=== PATIENT | female | born 1990 | race Caucasian/White ===

== ENCOUNTER 2025-04-12 12:28 | Outpatient (CLI) | payer BC, SELFPAY ==
--- NOTE | 2025-04-12 13:25 | P.TNLD_ITS ---
Visit Information Visit Information Date of evaluation: 04/12/25 Primary OB Provider: Dayron Portillo Reason for Evaluation: Yes other Comments/Additional reasons for admission: 35-year-old G1 at GA 35+1 weeks. notable for umbilical cyst requiring weekly NST. [facility] Medical History (Updated 04/12/25 @ 13:57 by Dayron Portillo MD) Fibroids (~2020) Deep vein thrombosis (~2014) Family History (Updated 04/11/25 @ 13:11 by Kim Streeter RN) Father Inguinal hernia Mother Hyperlipidemia Hypertension Grandfather Alzheimer's disease Grandmother Diabetes mellitus Hypertension Stroke Grandfather Alzheimer's disease Grandmother COVID-19 Diabetes mellitus Social History marital status: number of children: 0 household members: spouse lives independently: Yes caregiver/support person: No housing: house pets and animals: Yes (cat & dog) education level: other (MD) occupational status: employed current occupational exposures/hazards: No special shari needs: No travel history: recent (domestic only) seatbelt use: always helmet use: Yes water heater temp set < 120 deg: Yes working smoke detector in home: Yes fire extinguisher in home: Yes carbon monox detector in home: Yes firearms in home: No do you feel safe at home: Yes second hand exposure: No alcohol intake: former (~3/week when not ) during the past year weight has: remained stable (prior to ) well-balanced diet: daily or most days daily servings fruits/ve-4 caffeine: Yes (single cup coffee in AM) Type(s) of exercise: walking Evaluation Evaluation Baseline heart rate: 135 Variability: Moderate (11-25) monitor accelerations: Present Monitor Decelerations: Absent Contraction Frequency (minutes): 6 Uterine Contraction Intensity: Mild Category of Tracing: Reactive Status: Category l Diagnosis, Plan/Disposition Final Diagnosis (1) Supervision of other high risk pregnancies, third trimester: Status: Acute (2) Umbilical cord cyst during , antepartum: Status: Acute (3) History of DVT of lower extremity: Status: Acute Plan/Disposition Plan: NST reactive w/cat 1 strip. Outside US on 04/07/25 demonstrated normal umbilical dopplers and AC 60th percentile indicating appropriate growth. Continue PNC with testing as indicated. OB Disposition: home
== END 2025-04-12 13:03 | disposition home or self-care (01) ==
LOC: OB 16:58
PROVIDERS: Referring Provider Family Medicine; Visit Provider Family Medicine
DX: O43.893 Other placental disorders, third trimester (principal); Z86.718 Personal history of other venous thrombosis and embolism; Z3A.35 35 weeks gestation of pregnancy
CPT/HCPCS: 59025; G0378; G0379

== ENCOUNTER 2025-05-16 19:11 | Inpatient (IN) | payer BC, SELFPAY ==
[2025-05-16 20:52] LABS: Add Manual Diff / Slide Review NO; Basophils Absolute Auto 100 /uL (0-100); Eosinophils Absolute Auto 200 /uL (0-450); Eosinophils Percent Auto 2.6 % (2-4); Hematocrit 36.8 % (36-46); Hemoglobin 12.7 g/dL (12.0-16.0); Lymphocytes Absolute Auto 1300 /uL (1100-4500); Lymphocytes Percent Auto 15.6 % (25-40); Mean Corpuscular HGB Conc 34.6 % (30-36); Mean Corpuscular Hemoglobin 33.9 PG (26-34); Mean Corpuscular Volume 98.1 fL (80-100); Monocytes Absolute Auto 900 /uL (0-900); Monocytes Percent Auto 10.6 % (3-14); Neutrophils Absolute Auto 5700 /uL (1500-7000); Neutrophils Percent Auto 70.2 % (50-75); Platelet Count 177 X10^3/uL (150-400); Red Blood Cell Count 3.75 X10^6/uL (4.0-5.2); White Blood Cell Count 8.2 X10^3/uL (4.5-11.0)
[2025-05-16] MEDS: miSOPROStoL 25 MCG TABLET 50 MCG PO (21:02)
[2025-05-16 21:48] VITALS: BP 133/83
[2025-05-17] MEDS: miSOPROStoL 25 MCG TABLET 50 MCG PO ×2 (01:17→06:00)
--- NOTE | 2025-05-17 08:11 | PM.OBHP.IH.1 ---
OB HPI Date/Time Date of admission: 05/16/25 Date Patient Seen: 05/17/25 Time Patient Seen: 07:50 History of Present Condition Chief complaint: induction BERNICE Calculator Estimated Delivery Date Method Current WG Current Estimate 05/16/25 Ultrasound #1 40w 1d Other Estimates 05/23/25 LMP (Uncertain) 39w 1d Estimated Gestational Age (weeks): 40+1 : 1 Para: 0 Narrative: 35-year-old at GA 40+1 weeks presenting for IOL. Endorses normal movement. Denies vaginal bleeding or denies leakage of fluid. course notable for AMA, remote hx DVT on Lovenox, umbilical cord cyst. care: good care Dating criteria OB: based on 1st trimester US only Ultrasounds: normal 1st trimester US, normal mid trimester US and abnormal US findings (umbilical cord cyst incidentally noted on 35wk growth US) Indications Indication for induction OB: medical complication (hx DVD on Lovenox) Preadmission Labs Last OB Lab Results: Blood Type O Positive 05/16/25, 20:00 Antibody Screen Negative 05/16/25, 20:00 Hct, (36-46) 36.8 % 05/16/25, 20:00 Hgb, (12.0-16.0) 12.7 g/dL 05/16/25, 20:00 Genetic Screens: Cell-free DNA: Normal and Alpha-fetoprotein: Normal External Labs -: HBsAG: negative, HIV: negative, RPR/VDLR: negative and GBS status: positive -: Rubella: immune and Varicella: unknown HCAB: reactive Glucose Tolerance Testin hr Evaluation Evaluation Baseline heart rate: 125 Variability: Moderate (6-25) monitor accelerations: Present Monitor Decelerations: Absent Contraction Frequency (minutes): 2 Dilation (cm): 1 Effacement (%): 30 station: -3 Position of cervix: mid Consistency: medium [facility] Medical History (Updated 05/04/25 @ 12:00 by Dayron Portillo MD) Fibroids (~2020) Deep vein thrombosis (~2014) Family History (Updated 04/11/25 @ 13:11 by Kim Streeter RN) Father Inguinal hernia Mother Hyperlipidemia Hypertension Grandfather Alzheimer's disease Grandmother Diabetes mellitus Hypertension Stroke Grandfather Alzheimer's disease Grandmother COVID-19 Diabetes mellitus Social History marital status: number of children: 0 household members: spouse lives independently: Yes caregiver/support person: No housing: house pets and animals: Yes (cat & dog) education level: other () occupational status: employed current occupational exposures/hazards: No special shari needs: No travel history: recent (domestic only) seatbelt use: always helmet use: Yes water heater temp set < 120 deg: Yes working smoke detector in home: Yes fire extinguisher in home: Yes carbon monox detector in home: Yes firearms in home: No do you feel safe at home: Yes Smoking Status: Never smoker second hand exposure: No alcohol intake: former (~3/week when not ) during the past year weight has: remained stable (prior to ) well-balanced diet: daily or most days daily servings fruits/ve-4 caffeine: Yes (single cup coffee in AM) Type(s) of exercise: walking Meds Home Medications and Allergies Home Medications ?Medication ?Instructions ?Recorded ?Confirmed ?Type vitamin-ferrous sulfate 1 tab PO 04/11/25 05/04/25 History 27 mg iron-folic acid 0.8 mg tablet enoxaparin 40 mg/0.4 mL 40 mg (0.4 mL) SUBCUT DAILY #4 mL 05/04/25 05/16/25 Rx subcutaneous syringe (Lovenox) Allergies Allergy/AdvReac Type Severity Reaction Status Date / Time No Known Drug Allergies Allergy Verified 05/16/25 21:53 OB Exam Narrative Exam Narrative: General: Well-nourished, no distress HEENT: NC/AT, EOMI, moist mucous membranes CV: RRR, normal S1 S2, no m/g/r Resp: CTAB Abd: Gravid, soft, NTND, +BS Ext: Full ROM, no edema Skin: No rash or lesions Neuro: A&O x3, normal tone, no focal deficits Objective Labs 05/16/25 20:00 Labs: Laboratory Results - last 24 hr 05/16/25 20:00 WBC 8.2 RBC 3.75 L Hgb 12.7 Hct 36.8 MCV 98.1 MCH 33.9 MCHC 34.6 RDW 14.0 Plt Count 177 Neut % (Auto) 70.2 Lymph % (Auto) 15.6 L George % (Auto) 10.6 Eos % (Auto) 2.6 Baso % (Auto) 1.0 Neut # (Auto) 5700 Lymph # (Auto) 1300 George # (Auto) 900 Eos # (Auto) 200 Baso # (Auto) 100 Blood Type O Positive Antibody Screen Negative Assessment and Plan Assessment and Plan Assessment and Plan narrative: 35-year-old at GA 40+1 weeks here for IOL. notable for AMA, hx DVT on Lovenox, incidental umbilical cyst. -admit to L&D -last dose LMWH Friday evening (>36h ago), restart 6-12h after delivery and continue 6wk PP per MFM recs -cervical ripening with misoprostol q4h -pizarro balloon placed without complication -GBS positive, ppx indicated during active labor -pain control prn if desired by patient -PPH risk low -VTE risk low, SCDs with epidural -anticipate vaginal delivery Time-Based Coding :: 25 minutes spent with patient and on the chart (including review of chart, obtaining history, exam, reviewing outside data, placing orders, documenting exam and treatment plan, and counseling patient) on 05/17/2025.
--- NOTE | 2025-05-17 10:38 | P.PN_ITS ---
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 History of DVT while on OCP 10yrs ago. Was on Xarelto for a short period then no further anticoagulation until as recommended by [facility]. Last dose of lovenox on 05/15/25. Ok to have an epidural placed now since greater than 24 hours after last dose of lovenox. If post plan includes anticoagulation ok to give 5000units after epidural catheter removed. If dose is to exceed 5000 units must wait 4 hours after pulling epidural catheter for first dose. If plans includes lovenox must wait 4 hours after pulling epidural cathete before giving first dose. Objective Labs 05/16/25 20:00 Labs: Laboratory Results - last 24 hr 05/16/25 20:00 WBC 8.2 RBC 3.75 L Hgb 12.7 Hct 36.8 MCV 98.1 MCH 33.9 MCHC 34.6 RDW 14.0 Plt Count 177 Neut % (Auto) 70.2 Lymph % (Auto) 15.6 L [place] % (Auto) 10.6 Eos % (Auto) 2.6 Baso % (Auto) 1.0 Neut # (Auto) 5700 Lymph # (Auto) 1300 [place] # (Auto) 900 Eos # (Auto) 200 Baso # (Auto) 100 Blood Type O Positive Antibody Screen Negative [facility] Medical History (Updated 05/04/25 @ 12:00 by Dayron Portillo MD) Fibroids (~2020) Deep vein thrombosis (~2014) Family History (Updated 04/11/25 @ 13:11 by Kim Streeter RN) Father Inguinal hernia Mother Hyperlipidemia Hypertension Grandfather Alzheimer's disease Grandmother Diabetes mellitus Hypertension Stroke Grandfather Alzheimer's disease Grandmother COVID-19 Diabetes mellitus Social History marital status: number of children: 0 household members: spouse lives independently: Yes caregiver/support person: No housing: house pets and animals: Yes (cat & dog) education level: other () occupational status: employed current occupational exposures/hazards: No special shari needs: No travel history: recent (domestic only) seatbelt use: always helmet use: Yes water heater temp set < 120 deg: Yes working smoke detector in home: Yes fire extinguisher in home: Yes carbon monox detector in home: Yes firearms in home: No do you feel safe at home: Yes Smoking Status: Never smoker second hand exposure: No alcohol intake: former (~3/week when not ) during the past year weight has: remained stable (prior to ) well-balanced diet: daily or most days daily servings fruits/ve-4 caffeine: Yes (single cup coffee in AM) Type(s) of exercise: walking Assessment & Plan Time-Based Coding :: [TOTAL MINUTES] spent with patient and on the chart (including review of chart, obtaining history, exam, reviewing outside data, placing orders, documenting exam and treatment plan, and counseling patient) on [DATE].
[2025-05-17] MEDS: LACTATED RINGERS 1,000 ML 100 ML IV (15:20)
[2025-05-17] MEDS: OXYTOCIN PREMIX 30 UNIT/500 ML PLAST..BAG IV (15:20)
--- NOTE | 2025-05-17 19:57 | P.PCN_ITS ---
Regional Block Pre-procedure Procedure: Continuous Lumbar Epidural for L&D (with dural puncture) Attending OB provider: Dayron Portillo PMH/ROS narrative: 35yo female at 40w1d in labor requesting epidural. Remote hx DVT. Pt has been on Lovenox during last dose the night of 05/15, 48 hours ago. Guidelines for heparin or Lovenox re hold times after catheter removal (4 hours in most cases) provided to Dr. Portillo should he decide to restart those. See pre- anesthesia evaluation for further details. ASA Class: II Labs: Hct 36.8 % (36-46) 05/16/25 20:00 Plt Count 177 X10^3/uL (150-400) 05/16/25 20:00 Medications: Current Medications Generic Name Dose Route Start Last Admin Trade Name Freq PRN Reason Stop Dose Admin Calcium Carbonate 1,000 mg 05/16/25 20:03 Calcium Carbonate 500 Mg Tab PO Q2HR PRN Dyspepsia Carboprost Tromethamine 250 mcg 05/16/25 20:03 Carboprost 250 Mcg/Ml Ampul IM Q90M PRN Bleeding Diphenhydramine HCl 25 mg 05/17/25 19:55 Diphenhydramine 50 Mg/Ml Vial IV Q10M PRN Pruritis Ephedrine Sulfate 10 mg 05/17/25 19:55 Ephedrine 50 Mg/Ml Vial IV Q5M PRN Blood pressure decrease more than 20% of baseline. Oxytocin/Lactated Ringer's 30 unit in 500 mls @ 200 mls/hr 05/16/25 20:03 Oxytocin Premix IV CONT PRN Bleeding Protocol Tranexamic Acid 1,000 mg/ 100 mls @ 600 mls/hr 05/16/25 20:03 Sodium Chloride IV NOW PRN Bleeding Ampicillin Sodium 1,000 mg/ 100 mls @ 200 mls/hr 05/16/25 20:15 Sodium Chloride IV Q4H RK Oxytocin/Lactated Ringer's 30 unit in 500 mls @ 2 mls/hr 05/16/25 20:15 05/17/25 15:20 Oxytocin Premix IV 2 milliunit/min TITRATE RK 2 mls/hr Protocol Administration 2 MILLIUNIT/MIN FENT 2MCG/ML BUPIV 0.125% EPI 200 mcg in 100 mls @ 6 mls/hr 05/17/25 20:00 Fentanyl/Bupiv/Ns 2mcg/Ml - 0.125% EPIDURAL CONT RK Lidocaine HCl 20 ml 05/16/25 20:03 Lidocaine 1% 20 Ml INJ INTRA-OP PRN Post Delivery Methylergonovine Maleate 0.2 mg 05/16/25 20:03 Methylergonovine 0.2 Mg Tablet PO Q6HR PRN Heavy Bleeding Methylergonovine Maleate 0.2 mg 05/16/25 20:03 Methylergonovine 0.2 Mg/Ml Vial IM NOW PRN Bleeding Metoclopramide HCl 10 mg 05/17/25 19:56 Metoclopramide 10 Mg/2 Ml Inj IV 05/18/25 19:56 Q4H PRN Nausea Mineral Oil 30 ml 05/16/25 20:03 Mineral Oil 30 Ml Udc TOP PRN PRN Version Misoprostol 800 mcg 05/16/25 20:03 Misoprostol 200 Mcg Tablet MI NOW PRN Bleeding Misoprostol 400 mcg 05/16/25 20:03 Misoprostol 200 Mcg Tablet SL NOW PRN Bleeding Misoprostol 50 mcg 05/16/25 20:03 05/17/25 06:00 Misoprostol 25 Mcg Tablet PO 50 mcg Q4H PRN Administration cervical ripening Nalbuphine HCl 2.5 mg 05/17/25 19:55 Nalbuphine 20 Mg/Ml Ampul IV Q10M PRN Pruritis Naloxone HCl 0.2 mg 05/16/25 20:03 Naloxone 0.4 Mg/Ml Vial IV Q2MIN PRN Opiate Reversal Ondansetron HCl 4 mg 05/16/25 20:03 Ondansetron 4 Mg/2 Ml Inj IV Q4HR PRN Nausea And Vomiting Ondansetron HCl 4 mg 05/17/25 21:00 Ondansetron 4 Mg/2 Ml Inj IV 05/18/25 01:01 Q4HR RK Oxytocin 10 unit 05/16/25 20:03 Oxytocin 10 Unit/Ml Vial IM NOW PRN Bleeding Allergies: Allergies Allergy/AdvReac Type Severity Reaction Status Date / Time No Known Drug Allergies Allergy Verified 05/16/25 21:53 Procedure Insertion date: 05/17/25 Insertion time: 19:27 Prep/Local: 1% lidocaine (Chloraprep) Interspace: L3-4 Patient position: sitting Needle: 18 gauge Hustead (with 27g Pencan for dural puncture) Loss of resistance with: saline TEE at (cm): 5 ((4.75 cm) Catheter placed at SKIN (cm): 12 Catheter in SPACE (cm): 7 Insertion: No CSF, No Blood, No Paresthesia with insertion, No Paresthesia with injection and No Test dose reaction Initial Medications TEST DOSE time: 19:29 TEST DOSE: 1.5% lidocaine with epinephrine 1:200k (mL): 3 BOLUS DOSE time: 19:30 BOLUS DOSE (mL): 2 BOLUS DOSE med: other (Same as test dose) Infusion INFUSION: 0.125% bupivacaine and with fentanyl 2 mcg/mL Initial rate (mL/hr): 8 Subsequent interventions: Epidural infusion started 19:45. Pt reports pain remains mostly in her back and rates it 4/10, down from 9/10. Able to move BLE easily. KR 22:35 Checked on pt. She is resting comfortably, denies any pain with contractions. Able to move B feet and lower legs, and reports upper legs are heavy. No changes made. KR 09:05 Checked on pt. She is resting comfortably, currently denies any pain with contractions, and was 8 cm on most recent check. She has pushed her PCEA button a few times overnight, most recently about 45 minutes ago, for L lower back pain. However, pt cannot move BLE currently. Discussed with pt that it will help with delivery if she can move her legs somewhat to aid in pushing, and I want to lower the epidural pump rate so that she can regain some mobility. Pt will still have PCEA button if needed, but our goal is some degree of BLE mobility. Pt voiced understanding and agreed to decreased pump rate. Infusion rate was decreased from 8 ml/hr to 7 ml/hr. KR Post-procedure Anesthesia date START: 05/17/25 Anesthesia time START: 19:16 Anesthesia date END: 05/18/25 Anesthesia time END: 19:13 Post-procedure Anesthesia Assessment: Yes CV function: HR/BP stable, Yes Resp function: RR/sat/airway adequate, Yes Post-op hydration adequate, Yes Pain control adequate, Yes Nausea & vomiting absent, Yes Temperature > 36 C, Yes Mental status appropriate and Yes Anesthesia complications (No anesthesia complication; pt had hemorrhage, anes available. )
[2025-05-17] MEDS: AMPICILLIN 2,000 MG in SODIUM CHLORIDE 0.9% 100 ML 200 MG IV (23:57)
[2025-05-18] MEDS: FENT 2MCG/ML BUPIV 0.125% EPI 200 MCG/100 ML PLAST..BAG 6 MCG EPIDURAL ×2 (03:22→12:15)
[2025-05-18] MEDS: AMPICILLIN 1,000 MG in SODIUM CHLORIDE 0.9% 100 ML 200 MG IV ×4 (04:02→17:00)
[2025-05-18] MEDS: ONDANSETRON 4 MG/2 ML INJ IV (07:33)
[2025-05-18] MEDS: OXYTOCIN PREMIX 30 UNIT/500 ML PLAST..BAG IV (08:30)
--- NOTE | 2025-05-18 08:56 | PM.OBPNLAB ---
Date/Time Date Patient Seen: 05/18/25 Time Patient Seen: 08:30 Pain Control Pain control: tolerating well and epidural Pelvic Exam Dilation (cm): 8 Effacement (%): 90 station: -2 Amniotic membrane status: Ruptured Comments: SROM w/light blood, no mec Contractions Monitor mode: External Pitocin rate (mU/min): 2 Contraction frequency (min): 5 Contraction duration (min): 1 Contraction pattern: Regular Status status: Category l Heart Rate Baseline: 140 Monitor Accelerations: Present Monitor Decelerations: Absent Monitor Variability: Moderate Assessment and Plan Assessment: active labor Plan: continuous present management Comments: MWB: Comfortable w/epidural. FWB: Cat 1 strip, no concerns. Labor: Good progress overnight, SROM sometime between last check at 0100. Continue active management w/repositioning to encourage descent. Anticipate vaginal delivery.
[2025-05-18] MEDS: LACTATED RINGERS 1,000 ML 100 ML IV ×2 (08:59→15:02)
[2025-05-18] MEDS: miSOPROStoL 200 MCG TABLET 800 MCG PR (19:50)
[2025-05-18] MEDS: miSOPROStoL 200 MCG TABLET PR (19:51)
[2025-05-18] MEDS: CEFAZOLIN 2 GM/100 ML PREMIX 100 ML IV (19:55)
--- NOTE | 2025-05-18 21:41 | PM.OBPRVD ---
Events: Labor Induction and Labor Augmentation Labor & Delivery Delivery date: 05/18/25 Delivery Time: 19:13 Intrapartal Events: Prolonged 2nd Stage > 2.5 hours Cervical ripening method: per misoprostal protocol Induction method: other (Stoddard bulb) Delivery augmentation: rupture of membranes and pitocin Delivery monitor: external FHT and external uterine Route of delivery: vacuum extraction Indication for instrumentation: nonreassuring FHR tracing L&D Laceration Description: None (posterior wall vaginal hematoma) Quantitative Blood Loss: 2,004 Anesthesia Type: Epidural Complications: -nonreassuring heart tracing with terminal bradycardia -cord avulsion requiring manual placenta removal - hemorrhage -vaginal hematoma Narrative: Patient fully dilated at 1431 and began pushing at 1432. She pushed for 4.5 hours with head at 3+ station when terminal bradycardia to 70 bpm was noted. Pt verbally consented for vacuum delivery due to nrFHT and a Kiwi device was applied in front of the posterior fontanelle, with appropriate placement confirmed digitally. With the patient's next contraction, the vacuum was inflated 500 mmHg and a gentle downward pressure was used to assist with bringing the baby's head to a +4 station. The vacuum was applied for a total of 2 minutes and the baby's head then delivered atraumatically with one continuous pull and no pop-off. Vacuum assisted vaginal delivery of a viable male in the OA position occurred at 1912. The vacuum was then released and the anterior shoulder was then delivered without difficulty. The was suctioned and stimulated at the perineum. He was noted to have poor tone with no respiratory effort so cord was clamped and cut, and the handed to the waiting care team. Cord blood and segment were obtained. The umbilical cord avulsed during active management of the 3rd stage, requiring manual removal. Multiple fundal sweeps were performed, the the majority of placenta was delivered delivered along with an intrauterine fibroid. A portion remained in the uterus and was difficult to remove manually. Dr. Sevilla (OB vehicle sales professional) was consulted and assisted with manual removal of remaining placental membranes with clots, and an empty uterus was confirmed with bedside ultrasound. The placental pieces were examined and found to be entirely present with a 3-vessel cord, as well as an intrauterine fibroid. After fundal massage the uterus was firm and bleeding stopped. The vagina and cervix were examined for lacerations. No lacerations were noted, however a hematoma was present on the posterior vaginal wall. The hematoma was monitored for 20 minutes and noted to be stable in size. TXA, IV pitocin, and 1000 mcg misoprostol DE were administered for PPH. 2 g cefazolin administered as prophylaxis against endometritis due to multiple uterine sweeps. Patient stable with rooming in, bonding skin to skin and attempting to breast feed. Placenta and fibroid sent for pathology. Geraldine Baby 1: gender: Male Presentation: vertex Placenta delivery description: Manual Removal Cord Vessel Description: 3 Vessels score (1 min): 1 score (5 min): 5 score (10 min): 9 weight: 7 lb 8.319 oz Plan for aftercare: Routine care and Other (Stoddard catheter was placed due to stress of labor/delivery with plan to keep in place for 12 hours, restart Lovenox 12 hours after delivery)
--- NOTE | 2025-05-18 21:52 | PATH_ITS ---
[facility] Accession Number: [id number] No. of containers..01 Tissue . 01 Material submitted: . placenta - PLACENTA . 01 Diagnosis: PLACENTA: Disrupted, grossly complete, dove placenta with features of maturation consistent with third trimester gestational age. Placental weight: 415 grams. Gestational age: Not known. Centrally inserted unremarkable three vessel umbilical cord; no evidence of funisitis, arteritis, true knots, or thrombi. Unremarkable membranes; no evidence of acute chorioamnionitis or features of meconium staining. Placantal disc with amniotic web. No evidence of villitis, infarcts, or features of abruption. Fragment of benign leiomyoma. MRV 05/26/2025 1537 Local . 01 Electronically signed: . Meryl Orozco MD, Pathologist NPI- [id number] . 01 Gross description: . The specimen is received in formalin with two patient identifiers and placenta, and consists of an 18 x 15 x 2.2 cm ovoid-shaped dove placenta. The membranes are landers-brown and insert marginally. There is a 17 cm in length by 0.8 cm in diameter avulsed umbilical cord which has a 2.5 cm attached amniotic web at the base. The umbilical cord is landers-white with 2.5 twists per 5 cm. The umbilical cord is centrally inserted. The surface is landers-purple with vessels arborizing the entire placental disc from the base of the umbilical cord. The amnion is partially torn from different portions of the surface. The maternal surface is made up of diffusely calcified and disrupted cotyledons; however, grossly appears entirely present. There is an additional 17 cm in length by 1.1 cm in diameter portion of umbilical cord identified in the container. Both sections of umbilical cord are sectioned to show a trivascular architecture. Sectioning through the placental disc shows red-landers beefy cut surface. No areas of infarction are appreciated. The trimmed weight of the placenta is 415 grams. Also received in the same container is a 5.5 x 4.5 x 4.0 cm (55 gram) enucleated white whorled well-circumscribed nodule with minimal attached adherent placental tissue. Sectioning through the nodule shows a white lobulated cut surface with a 1.8 cm in greatest dimension central area of hemorrhage. No cystic changes or necrosis is appreciated. Additionally received in the container is a 6.5 x 4.5 x 2.0 cm aggregate of clotted blood. Grad Intern sections are submitted as labeled: . A1: Proximal and distal cord. A2: Membrane rolls. A3-A5: Full thickness placental disc. A6: Central portion of hemorrhage of enucleated nodule. A7-A8: Additional sections of nodule to include adherent placental tissue. ([id number]) /MRV 05/20/[address] [place] [address] . 01 Pathologist provided ICD-10: D25.9, O43.90 . 01 CPT . 448041 Specimen Comment: A courtesy copy of this report has been sent to [facility] Performed at: [address] [address], [place], [place] [id number] MD Mateo Espinal MD Phone: [phone]
[2025-05-18] MEDS: ACETAMINOPHEN 325 MG TABLET 650 MG PO (23:01)
[2025-05-18] MEDS: IBUPROFEN 600 MG TABLET PO (23:02)
[2025-05-18] MEDS: WITCH HAZEL/GLYCERIN PADS 1 EACH TOP (23:02)
[2025-05-18] MEDS: DERMOPLAST SPRAY 20% 60 ML 1 SPRAY TOP (23:03)
[2025-05-19 01:40] LABS: Hematocrit 31.6 % (36-46); Hemoglobin 11.2 g/dL (12.0-16.0)
[2025-05-19] MEDS: IBUPROFEN 600 MG TABLET PO ×2 (05:11→13:45)
[2025-05-19] MEDS: ACETAMINOPHEN 325 MG TABLET 650 MG PO ×2 (05:11→13:44)
[2025-05-19 08:48] LABS: Hematocrit 31.3 % (36-46); Hemoglobin 10.9 g/dL (12.0-16.0)
[2025-05-19] MEDS: ENOXAPARIN 40 MG/0.4 ML SYRINGE SUBCUT (14:06)
[2025-05-19] MEDS: DOCUSATE 100 MG CAPSULE PO (16:50)
--- NOTE | 2025-05-19 17:17 | P.DS_ITS ---
Discharge Providers Provider Date of admission: 05/16/25 19:11 Discharge Date: 05/19/25 Primary care physician: Doctor Patricia MD Consults: 05/18/25 21:35 Consult to [employer] Player Routine Comment: Discharge provider: Dayron Portillo MD Summary Hospital Course Date Patient Seen: 05/19/25 Time Patient Seen: 13:15 Diagnoses: #vacuum assisted vaginal delivery # hemorrhage #vaginal hematoma #acute blood loss anemia #breast feeding mother #history of DVT Hospital Course: Admitted for mIOL on 05/17/2025. Progressed adequately with augmentation to complete dilation over the course of 20 hours. She had a vacuum assisted vaginal delivery of a live male infant with no lacerations. There was a cord avulsion during active management of the 3rd stage of labor requiring manual extraction of the placenta along with an intrauterine fibroid. She experiencing hemorrhage with the QBL of 2004 mL, but remained asymptomatic and did not require transfusion. A vaginal hematoma was noted but did not expand or lead to any additional bleeding. Her course was uncomplicated. Lovenox started 12 hours after delivery, to be continued 6 weeks PP per [facility] recs. At discharge patient is ambulating well, tolerating normal diet, breast-feeding without difficulty, and pain is adequately controlled. She reports bleeding is similar to normal menses. Peripartum Data Delivery Method: Assisted Delivery (Vacuum) Procedures: Manual extraction of placenta with multiple fundal sweeps complications: hematoma (posterior vaginal wall) 1: Gender: Male Disposition of : home Discharge Diagnosis (1) Vacuum extractor delivery, delivered: Status: Acute (2) hemorrhage: Status: Acute (3) Vaginal hematoma: Status: Acute (4) Anemia due to acute blood loss: Status: Acute (5) Mother currently breast-feeding: Status: Acute (6) History of DVT of lower extremity: Status: Acute Status at Discharge Cognitive/behavioral status at discharge: oriented Functional status at discharge: independent ambulation Overall status at discharge: patient is progressing back to baseline Time Spent with Patient Time attestation: Total time spent providing and/or coordinating discharge services: 25 minutes Objective Labs 05/19/25 08:40 Labs: Laboratory Results - last 24 hr 05/19/25 05/19/25 01:32 08:40 Hgb 11.2 L 10.9 L Hct 31.6 L 31.3 L Exam Narrative Exam Narrative: General: Well-appearing, well-nourished, no distress HEENT: Moist mucous membranes, no pallor CV: Regular rate and rhythm, no murmur auscultated Resp: CTAB, comfortable work of breathing Abdomen: Soft, bowel sounds present, fundus firm below umbilicus with appropriate tenderness Extremities: No edema, no calf tenderness or evidence of DVT Discharge Plan Discharge Plan Patient Disposition: Home Discharge orders & Medications Prescriptions: New acetaminophen 325 mg Tablet 650 mg PO Q6H PRN (Reason: Pain, Mild (1-3)) Qty: 60 1RF Dermoplast (with menthol) 20-0.5 % Aerosol 1 spray topical Q1HR PRN (Reason: Pain, Moderate (4-6)) Qty: 78 1RF ibuprofen 600 mg Tablet 600 mg PO Q6H Qty: 60 1RF Purelan Cream 1 applic topical PRN PRN (Reason: Sore Nipples) Qty: 7 6RF [employer] Sanna 12.5-50 % Pads, Medicated 1 pad topical Q30M PRN (Reason: Itching) Qty: 40 1RF polyethylene glycol 3350 17 gram/dose powder 17 g PO DAILY Qty: 510 1RF ferric citrate [Auryxia] 210 mg iron tablet 210 mg PO Q OTHER DAY Qty: 60 0RF Rx Instructions: administer with a meal Continued enoxaparin [Lovenox] 40 mg/0.4 mL syringe 40 mg SUBCUT DAILY Qty: 4 5RF vit-ferrous sulfat-FA 27 mg iron- 0.8 mg tablet 1 tab PO Follow up/Referrals: Dayron Portillo MD [Physician, Family Practice] - 06/29/25 3:00 pm Referral Note: Your six week follow up appointment with Dr. Portillo is scheduled for June 29 @ 3:00pm. Please arrive 15min early. Doctor Gomez MD [Primary Care Provider, Medical] Visit Report/Discharge Packet Stand Alone Forms: Discharge: Care, Patient Portal/API, Stroke Signs & Symptoms Discharge Data Primary Care Provider: Doctor Patricia
[2025-05-19 17:41] VITALS: BP 108/70; PULSE 74; RESP 14; TEMP 36.7
== END 2025-05-19 19:40 | disposition home or self-care (01) | DRG 806 ==
PROVIDERS: Admitting Provider Family Medicine; Referring Provider Family Medicine; Visit Provider Family Medicine
DX: O99.824 Streptococcus B carrier state complicating childbirth (principal); D62 Acute posthemorrhagic anemia; Z37.0 Single live birth; O63.1 Prolonged second stage (of labor); O34.13 Maternal care for benign tumor of corpus uteri, third trimester; D25.9 Leiomyoma of uterus, unspecified; O76 Abnormality in fetal heart rate and rhythm complicating labor and delivery; O90.81 Anemia of the puerperium; O69.89X0 Labor and delivery complicated by other cord complications, not applicable or unspecified; O90.2 Hematoma of obstetric wound; O72.2 Delayed and secondary postpartum hemorrhage; Z3A.40 40 weeks gestation of pregnancy; Z86.718 Personal history of other venous thrombosis and embolism; Z79.01 Long term (current) use of anticoagulants
CPT/HCPCS: 36415; 59050; 59200; 59410; 76815; 85014; 85018; 85025; 86850; 86900; 86901; G0379; J0290; J0690; J1650; J2405; J2590; S0191